=== PATIENT | male | born 1995 | race Caucasian/White ===

== ENCOUNTER 2017-10-11 17:46 | Emergency (ER) | payer BC, OTHER ==
[~2017-10-11] VITALS: Ht 170.2 cm; Wt 72.6 kg
[~2017-10-11 17:46] MED LIST: ADVIL200 M1 PO; BENADRYL25 M1 BC; KEFLEX500 MG ORAL
[2017-10-11] MEDS ORDERED: NKM (17:57)
[2017-10-11] MEDS ORDERED: LR 1000ml 1,000 ML IV STA (18:36)
[2017-10-11 18:37] VITALS: BP 132/76
--- NOTE | 2017-10-11 18:42 | Emergency Room Report ---
History of Present Illness General Chief Complaint: General Complaint Source: Patient Present Illness HPI 21YOM walk-in with productive cough green sputum, myalgias, fever/chills and left sore throat for 36 hours Able to swallow pills, secretions but hurts Took motrin and benadryl at home with mild improvement +sick contact at work, young kid with similar productive cough No COPD/asthma or other med problems Non-smoker Allergies: Coded Allergies: No Known Allergies (Unverified , 05/22/12) Patient History Past Medical History: none Past Surgical History: none Pertinent Family History: none Immunizations: UTD Reviewed Nursing Documentation: PMH: Agreed, PSxH: Agreed Nursing Documentation-PMH Past Medical History: No Stated History Review of Systems All Other Systems: negative except mentioned in HPI Physical Exam Vital Signs Date Time Temp Pulse Resp B/P (MAP) Pulse Ox O2 Delivery O2 Flow Rate FiO2 10/11/17 17:54 102.7 172 22 133/76 88 Room Air Sp02 EP Interpretation: reviewed, normal General Appearance: normal inspection, well appearing, no apparent distress, alert, GCS 15, non-toxic Head: normocephalic, atraumatic Eyes: bilateral eye PERRL, bilateral eye EOMI ENT: normal ENT inspection, hearing grossly normal, normal pharynx, no angioedema, normal voice, TMs + canals normal, uvula midline, moist mucus membranes, pharyngeal erythema Neck: normal inspection, full range of motion, supple, thyroid normal, no meningismus, no bony tend Respiratory: normal inspection, lungs clear, normal breath sounds, no rhonchi, no respiratory distress, no retraction, no accessory muscle use, no wheezing, speaking full sentences Cardiovascular #1: regular rate, rhythm, no edema, no JVD, normal capillary refill Gastrointestinal: normal inspection, normal bowel sounds, non tender, soft, no mass, no peritonitis, non-distended, no guarding, no hernia, no pulsatile mass Genitourinary: no CVA tenderness Musculoskeletal: normal inspection, back normal, normal range of motion, no calf tenderness, pelvis stable, Antonieta's Sign negative Neurologic: normal inspection, alert, oriented x3, responsive, tapper hand III-XII nml as tested, motor strength/tone normal, cerebellar normal, normal gait, speech normal Psychiatric: normal inspection, judgement/insight normal, mood/affect normal, no suicidal/homicidal ideation, no delusions Skin: normal inspection, normal color, no rash Lymphatic: normal inspection, no adenopathy Medical Decision Making Diagnostic Impression: Primary Impression: Fever Qualified Codes: R50.9 - Fever, unspecified Additional Impressions: Cough Influenza B Pneumonia Qualified Codes: J18.9 - Pneumonia, unspecified organism ER Course Flu: + for Flu B CXR with left sided PNA Was given first dose of tamiflu here along with IVF hydration, toradol, zofran Zpack for left sided CAP Close PMD followup Understands to return for worsening symptoms ER course: Patient has remained stable during ED stay. Disposition: Patient is to be discharged to home. Prescriptions given are tamiflu, motrin, z-pack, albuterol Patient is instructed to follow up with their primary care doctor within 1-2 days. Strict return precautions discussed with patient such as fever, chills, worsening/severe pain, nausea, vomiting, which may indicate severe illness. Patient verbalizes understanding and agrees with plan. Please note that this Emergency Department Report was dictated using mylearnadfriendinterior design instructor technology software, occasionally this can lead to erroneous entry secondary to interpretation by the dictation equipment Rhythm Strip Diag. Results EP Interpretation: yes Rate: 90 Rhythm: NSR, no PVC's, no ectopy Chest X-Ray Diagnostic Results Chest X-Ray Diagnostic Results : Chest X-Ray Ordered: Yes # of Views/Limited/Complete: 1 View Indication: Other - Fever, cough EP Interpretation: Yes Interpretation: no pneumothorax, no acute cardiopulmonary disease, other - left sided infiltrate Impression: No acute disease Electronically Signed by: Dr Eligio Meza MD Last Vital Signs Date Time Temp Pulse Resp B/P (MAP) Pulse Ox O2 Delivery O2 Flow Rate FiO2 10/11/17 18:37 102.8 140 21 132/76 94 Room Air Status: improved Disposition: HOME, SELF-CARE Scripts Albuterol Sulfate (VENTOLIN HFA) 18 Gm Hfa.aer.ad 1 PUFF INH EVERY 6 HOURS for For Cough, #18 GM 0 Refills Prov: ELIGIO MEZA M.D. 10/11/17 Azithromycin* (ZITHROMAX*) 250 Mg Tablet 250 MG ORAL DAILY, #6 TAB 0 Refills Take two tables once daily for 1 day, then one tablet once daily for 4 days. Prov: ELIGIO MEZA M.D. 10/11/17 Oseltamivir Phosphate (Tamiflu) 75 Mg Capsule 75 MG ORAL TWICE A DAY for 5 Days, #9 CAP Prov: ELIGIO MEZA M.D. 10/11/17 ELIGIO MEZA M.D. Oct 11, 2017 18:42
[2017-10-11] MEDS ORDERED: Ketorolac 30mg Inj IV ONE (18:45)
[2017-10-11] MEDS ORDERED: Oseltamivir 75mg cap ORAL SCH (18:45)
[2017-10-11] MEDS ORDERED: Acetaminophen 500mg (ES) tab ORAL ONE (18:45)
[2017-10-11 19:19] LABS: BASOPHILS % (AUTO) 0.8 % (0.0-2.0); HEMATOCRIT 45.3 % (42.0-52.0); LYMPHOCYTES % (AUTO) 6.7 % (20.0-45.0); MEAN CORPUSCULAR VOLUME 88 FL (80-99); MONOCYTES % (AUTO) 8.7 % (1.0-10.0); NEUTROPHILS % (AUTO) 83.7 % (45.0-75.0); PLATELET COUNT 157 K/UL (150-450); RED BLOOD COUNT 5.12 M/UL (4.70-6.10); WHITE BLOOD COUNT 10.6 K/UL (4.8-10.8)
[2017-10-11 19:42] LABS: ANION GAP 9 mmol/L (5-15); BLOOD UREA NITROGEN 15 mg/dL (7-18); CARBON DIOXIDE 26 MMOL/L (21-32); CHLORIDE 100 MMOL/L (98-107); CREATININE 1.1 MG/DL (0.55-1.30); POTASSIUM 3.5 MMOL/L (3.5-5.1); SODIUM 135 MMOL/L (136-145)
[2017-10-11 19:55] LABS: ALANINE AMINOTRANSFERASE 48 U/L (12-78); ALBUMIN 4.2 G/DL (3.4-5.0); ALBUMIN/GLOBULIN RATIO 1.3 (1.0-2.7); ALKALINE PHOSPHATASE 66 U/L (46-116); ASPARTATE AMINO TRANSFERASE 29 U/L (15-37); BILIRUBIN,TOTAL 1.7 MG/DL (0.2-1.0)
[2017-10-11 20:05] LABS: BILIRUBIN,DIRECT 0.3 MG/DL (0.0-0.3)
[2017-10-11] MEDS ORDERED: ZITHROMAX250 MG ORAL (20:08)
[2017-10-11] MEDS ORDERED: TAMIFLU75 MG ORAL (20:08)
[2017-10-11 20:32] VITALS: BP 110/49
[2017-10-11] MEDS ORDERED: VENTOLIN HFA18 GM INH (20:46)
[2017-10-11 21:00] VITALS: BP 110/49
--- NOTE | 2017-10-12 10:30 | Diagnostic Imaging Report ---
Indication: Shortness of breath Technique: One view of the chest Comparison: none Findings: Infiltrate is seen in the left infrahilar region. There is right perihilar atelectasis. The pleural spaces are clear. The heart size is normal Impression: Left infrahilar infiltrate and right perihilar atelectasis This agrees with the preliminary interpretation provided overnight by [facility].
== END 2017-10-11 21:00 | disposition home or self-care (01) ==
LOC: EMR 18:20
DX: J10.1 Influenza due to other identified influenza virus with other respiratory manifestations (principal); J18.9 Pneumonia, unspecified organism
CPT/HCPCS: 36415; 71045; 80053; 82248; 85025; 86710; 96361; 96374; 96375; 99284; J1885; J2405; J7120

== ENCOUNTER → 2019-10-09 | Emergency (ER) | payer BC, OTHER ==
[~2019-10-09] VITALS: Ht 167.6 cm; Wt 72.6 kg
[~2019-10-09] MED LIST changes: +IBUPROFEN600 MG ORAL; +NKM; +ROBAXIN-500MG ORAL; +TAMIFLU75 MG ORAL; +VENTOLIN HFA18 GM INH; +ZITHROMAX250 MG ORAL
--- NOTE | 2019-10-09 16:10 | NUR ---
ED Nurse Note: PT WALKED IN TO ED C/O RIGHT KNEE PAIN S/P FALL WHILE PLAYING BASEBALL X4 HOURS AGO. PT RATES PAIN 10/10. PT STATES HEARING A POP IN THE KNEE WHEN HE FELL. VSS, NAD, NO TRAUMA OR OPEN WOUND.
--- NOTE | 2019-10-09 16:13 | NUR ---
ED Nurse Note: xr atbedside.
--- NOTE | 2019-10-09 16:21 | Emergency Room Report ---
History of Present Illness General Chief Complaint: Pain Source: Patient Present Illness HPI 23-year-old male with history of right ACL sprain here complaining of fall and injury to right knee prior to arrival. Patient was playing sports as he suddenly twisted his right knee and landed on it. Has full range of motion. Tiffanie's negative. Denies pain with flexion and extension. Reports pain upon walking and changing position from sitting to standing. Has not yet taken medication for symptom relief. Denies any tingling or numbness. Denies calf tenderness and swelling. Denies all other injuries. Allergies: Coded Allergies: No Known Allergies (Unverified , 05/22/12) Patient History Past Medical History: see triage record Past Surgical History: unable to obtain Pertinent Family History: none Immunizations: UTD Reviewed Nursing Documentation: PMH: Agreed; PSxH: Agreed Nursing Documentation-PMH Past Medical History: No Stated History Review of Systems All Other Systems: negative except mentioned in HPI Physical Exam Vital Signs Date Time Temp Pulse Resp B/P (MAP) Pulse Ox O2 Delivery O2 Flow Rate FiO2 10/09/19 16:01 98.1 75 18 123/76 (92) 99 Sp02 EP Interpretation: reviewed, normal General Appearance: no apparent distress, alert, GCS 15, non-toxic Head: normocephalic, atraumatic Eyes: bilateral eye normal inspection, bilateral eye PERRL ENT: hearing grossly normal, normal pharynx, no angioedema, normal voice Neck: full range of motion, supple/symm/no masses Respiratory: chest non-tender, lungs clear, normal breath sounds, no rhonchi, no respiratory distress, no retraction, no wheezing, speaking full sentences Cardiovascular #1: regular rate, rhythm, no edema, no murmur, normal capillary refill Gastrointestinal: non tender, soft, no mass Rectal: deferred Genitourinary: no CVA tenderness Musculoskeletal: back normal, no calf tenderness, pelvis stable, gait/station normal, Antonieta's Sign negative, other - Negative Tiffanie's, ACL PCL intact Neurologic: alert, motor strength/tone normal, oriented x3, sensory intact, responsive, speech normal Psychiatric: judgement/insight normal, memory normal, mood/affect normal, no suicidal/homicidal ideation Skin: no rash Lymphatic: no adenopathy Procedures Splinting Splinting : Consent: Verbal Location: Right knee Pre-Made Type: knee immobilizer Pre-Proc Neuro Vasc Exam: normal Post-Proc Neuro Vasc Exam: normal Patient Tolerated: Well Complications: None Medical Decision Making PA Attestation All my diagnosis and treatment plans were reviewed ad discussed with my supervising physician Dr. Patel Diagnostic Impression: Primary Impression: Knee sprain ER Course 23-year-old male with history of right ACL sprain here complaining of fall and injury to right knee prior to arrival. Patient was playing sports as he suddenly twisted his right knee and landed on it. Has full range of motion. Tiffanie's negative. Denies pain with flexion and extension. Reports pain upon walking and changing position from sitting to standing. Has not yet taken medication for symptom relief. Denies any tingling or numbness. Denies calf tenderness and swelling. Denies all other injuries. Ddx considered but are not limited to: Knee sprain, strain, fracture, contusion , meniscus tear injury Vital signs: are WNL, pt. is afebrile H&PE are most consistent with: Right knee sprain ORDERS: Knee x-ray, Motrin Robaxin ER intervention: Symptomatic knee immobilizer DISCHARGE: At this time pt. is stable for d/c to home. Will provide printed patient care instructions, and any necessary prescriptions. Care plan and follow up instructions have been discussed with the patient prior to discharge. Follow-up with hospitality specialist, take medication as directed, avoid strenuous physical activity, worsening symptoms return to the emergency room Other X-Ray Diagnostic Results Other X-Ray Diagnostic Results : X-Ray ordered: Right knee x-ray # of Views/Limited Vs Complete: 3 View Indication: Pain EP Interpretation: Yes PA Xray: Interpretation reviewed, by supervising MD, and agrees with findings. Interpretation: no dislocation, no soft tissue swelling, no fractures Impression: No acute disease Electronically Signed by: Ruth Green PA-C Last Vital Signs Date Time Temp Pulse Resp B/P (MAP) Pulse Ox O2 Delivery O2 Flow Rate FiO2 10/09/19 16:01 98.1 75 18 123/76 (92) 99 Disposition: HOME, SELF-CARE Condition: Stable Scripts Methocarbamol* (ROBAXIN-500*) 500 Mg Tablet 500 MG ORAL TID PRN for For Pain, #15 TAB 0 Refills Prov: Ruth Nicholas 10/09/19 Ibuprofen* (MOTRIN*) 600 Mg Tablet 600 MG ORAL Q8H PRN for For Pain, #30 TAB 0 Refills Prov: Ruth Nicholas 10/09/19 Patient Instructions: Knee Sprain, [id number] Additional Instructions: Take medication as directed, follow-up with your primary care provider, you need to be sent to hospitality specialist, also using ice and heating affected area, if worsening symptoms return to the emergency room Ruth Nicholas Oct 09, 2019 16:21
[2019-10-09 16:25] VITALS: BP 123/76
--- NOTE | 2019-10-09 16:25 | NUR ---
ER DISCHARGE NOTE: Patient is cleared to be discharged per ERMD, pt is aox4, on room air, with stable vital signs. pt was given dc and prescription instructions, pt was able to verbalize understanding, pt id band removed without complications. Knee immobilizer applied to affected knee by certified endoscopy technician. pt is able to ambulate with steady gait. pt took all belongings.
--- NOTE | 2019-10-09 16:37 | Diagnostic Imaging Report ---
EXAM: XR Right Knee, 3 Views CLINICAL HISTORY: TRAUMA TECHNIQUE: Three views of the right knee. COMPARISON: 10/06/2011 FINDINGS: Bones/joints: No acute fracture or malalignment. Probable small knee effusion. Soft tissues: No significant abnormality. IMPRESSION: No acute fracture or malalignment.
== END | disposition home or self-care (01) ==
LOC: EMR 16:45
DX: S83.91XA Sprain of unspecified site of right knee, initial encounter (principal); W19.XXXA Unspecified fall, initial encounter; Y92.9 Unspecified place or not applicable
CPT/HCPCS: 29505; 99283